=== PATIENT | male | born 1970 | race Caucasian/White ===

== ENCOUNTER 2018-11-15 16:18 | Emergency (ER) | payer SELFPAY ==
[~2018-11-15] VITALS: Ht 154.9 cm; Wt 83.0 kg
[2018-11-15 16:27] VITALS: Ht 154.9 cm; Wt 83.0 kg
[2018-11-15 17:47] LABS: CALCIUM 9.8 mg/dL (8.5-10.1); CARBON DIOXIDE 27.5 mmol/L (21-32); CHLORIDE SERUM 101 mmol/L (98-107); CREATININE SERUM 1.3 mg/dL (0.7-1.3); GFR1 > 60 mL/min; GLUCOSE SERUM 123 mg/dL (74-106); POTASSIUM SERUM 4.1 mmol/L (3.5-5.1); SODIUM SERUM 140 mmol/L (136-145)
[2018-11-15 17:48] LABS: BASOPHIL % 0.2 % (0-2); PLATELET COUNT 220 x10^3mcL (130-400); RED CELL DISTRIBUTION WIDTH 12.6 % (11.5-14.5)
[2018-11-15 17:58] LABS: ALBUMIN 4.4 g/dL (3.4-5.0); ALKALINE PHOSPHATASE 82 U/L (46-116); ALT/SGPT 32 U/L (16-63); AST/SGOT 16 U/L (15-37); BILIRUBIN TOTAL 0.7 mg/dL (0.20-1.00); CHOLESTEROL 175 mg/dL (<200); CHOLESTEROL/HDL RATIO 4.7; HDL CHOLESTEROL 37 mg/dL (40-60); LIPASE 302 IU/L (73-393); TRIGLYCERIDES 113 mg/dL (<150)
[2018-11-15 18:02] LABS: TOTAL PROTEIN, SERUM 8.4 g/dL (6.4-8.2)
[2018-11-15 18:09] LABS: FREE T4 1.14 ng/dL (0.76-1.46); FREE THYROXINE INDEX 3.5 ug/dL (1.4-4.5); T4(THYROXINE) 10.1 ug/dL (4.7-13.3)
[2018-11-15 18:22] LABS: T3 TOTAL 1.12 ng/mL
[2018-11-15 18:32] VITALS: BP 122/77
== END 2018-11-15 19:12 | disposition home or self-care (01) ==
LOC: ED 16:18
PROVIDERS: Specialist
DX: R42 Dizziness and giddiness (principal); I10 Essential (primary) hypertension; E11.9 Type 2 diabetes mellitus without complications
CPT/HCPCS: 83880; 84439; J7030; J8597; Q0092

== ENCOUNTER 2019-11-01 23:01 | Emergency (ER) | payer SELFPAY ==
[~2019-11-01] VITALS: Ht 165.1 cm; Wt 88.5 kg
[2019-11-01 23:17] VITALS: Ht 165.1 cm; Wt 88.5 kg
[2019-11-02 01:56] LABS: BASOPHIL % 0.9 % (0-2); RED CELL DISTRIBUTION WIDTH 12.3 % (11.5-14.5)
[2019-11-02 02:09] LABS: CALCIUM 9.1 mg/dL (8.5-10.1); CARBON DIOXIDE 23.4 mmol/L (21-32); CHLORIDE SERUM 108 mmol/L (98-107); CREATININE SERUM 0.9 mg/dL (0.7-1.3); GFR1 > 60 mL/min; GLUCOSE SERUM 133 mg/dL (74-106); POTASSIUM SERUM 4.3 mmol/L (3.5-5.1); SODIUM SERUM 143 mmol/L (136-145)
[2019-11-02 02:12] LABS: PLATELET COUNT 262 x10^3mcL (130-400)
[2019-11-02 03:53] VITALS: BP 156/95
== END 2019-11-02 03:53 | disposition home or self-care (01) ==
LOC: ED 23:01
PROVIDERS: Student in an Organized Health Care Education/Training Program
DX: R00.2 Palpitations (principal); J02.9 Acute pharyngitis, unspecified; E11.65 Type 2 diabetes mellitus with hyperglycemia; I10 Essential (primary) hypertension; Z20.828 Contact with and (suspected) exposure to other viral communicable diseases
CPT/HCPCS: Q0092; U0003-CS

== ENCOUNTER 2020-06-21 16:32 | Emergency (ER) | payer MEDICAID ==
[~2020-06-21] VITALS: Ht 162.6 cm; Wt 92.5 kg
[2020-06-21 16:47] VITALS: Ht 162.6 cm; Wt 92.5 kg
[2020-06-21 17:29] LABS: CALCIUM 9.3 mg/dL (8.5-10.1); CARBON DIOXIDE 24.4 mmol/L (21-32); CHLORIDE SERUM 97 mmol/L (98-107); CREATININE SERUM 0.8 mg/dL (0.7-1.3); GFR1 > 60 mL/min; GLUCOSE SERUM 243 mg/dL (74-106); POTASSIUM SERUM 3.8 mmol/L (3.5-5.1); SODIUM SERUM 131 mmol/L (136-145)
[2020-06-21 17:34] LABS: ALBUMIN 3.9 g/dL (3.4-5.0); ALKALINE PHOSPHATASE 111 U/L (46-116); ALT/SGPT 67 U/L (16-63); AST/SGOT 27 U/L (15-37); BASOPHIL % 0.8 % (0.2-1.5); BILIRUBIN TOTAL 0.4 mg/dL (0.20-1.00); PLATELET COUNT 218 x10^3mcL (152-348); RED CELL DISTRIBUTION WIDTH 12.9 % (12.1-16.2); TOTAL PROTEIN, SERUM 7.6 g/dL (6.4-8.2)
[2020-06-21 18:49] LABS: AMPHETAMINE QUAL UR NONE DETECTED (See below)
[2020-06-21] MEDS ORDERED: PRI20 PO (19:10)
[2020-06-21 20:04] VITALS: BP 135/85
== END 2020-06-21 20:04 | disposition home or self-care (01) ==
LOC: ED 16:32
PROVIDERS: Specialist
DX: R07.89 Other chest pain (principal); I10 Essential (primary) hypertension; E11.9 Type 2 diabetes mellitus without complications; E78.00 Pure hypercholesterolemia, unspecified; E66.9 Obesity, unspecified; R06.02 Shortness of breath